=== PATIENT | female | born 1990 | race Caucasian/White ===

== ENCOUNTER 2017-01-27 07:47 | Emergency (ER) | payer OTHER ==
[~2017-01-27] VITALS: Ht 165.1 cm; Wt 63.5 kg
[~2017-01-27 07:47] MED LIST: CLIN1CAP6 PO; ZOFR4TAB3 SL
[2017-01-27 07:49] VITALS: BP 118/68; PULSE 106; RESP 20; TEMP 98.3; O2SAT 100
--- NOTE | 2017-01-27 08:23 | PD ---
HPI . BACK PAIN Chief Complaint: Pain: Acute or Chronic Time Seen by Provider: 07:54 Travel History International Travel<30 days: No Contact w/Intl Traveler<30days: No Traveled to known affect area: No History of Present Illness HPI 26-year-old female presents emergency department for evaluation of pain that originates between her shoulder blades and radiates through the anterior portion of her chest. Patient states the pain makes it difficult for her to take a deep breath. Patient states the pain started spontaneously yesterday when she was driving. The pain resolves completely with the use of over-the- counter NyQuil. The patient has taken NyQuil twice and both times the pain has resolved. The pain is not present during this time due to the patient taking NyQuil at 6 AM. The patient is a pack-a-day smoker. Denies any alcohol or drug use. The patient denies any major medical history and doesn't take any routine daily medication. The patient denies any family history of cardiac disease. The patient denies any nausea vomiting diarrhea. The patient denies any injuries, falls or traumas precipitating the pain. PFSH Past Medical History Anxiety: Yes Diminished Hearing: No Psychiatric: Yes Immunizations Current: Yes ?: Not LMP: 01/12/17 : 2 Para: 1 Ectopic : Yes Past Surgical History Abdominal Surgery: Yes (PARACENTISIS) Appendectomy: Yes (age 3) Section: Yes (12/05/2008) Gynecologic Surgery: Yes (L FALLOPIAN TUBE REMOVAL D/T ECTOPIC ) Social History Alcohol Use: Yes (SOCIALLY) Tobacco Use: Yes (1/2 ppd ) Substance Use: No Allergies-Medications (Allergen,Severity, Reaction): Coded Allergies: amoxicillin (Unverified Allergy, Severe, Anaphylaxis, 01/27/17) Reported Meds & Prescriptions Reported Meds & Active Scripts Active Flexeril (Cyclobenzaprine HCl) 5 Mg Tab 5 Mg PO TID Naproxen Sodium 220 Mg Tab 440 Mg PO BID PRN Review of Systems Except as stated in HPI: all other systems reviewed are Neg Physical Exam Narrative GENERAL: Well-nourished, well-developed 26-year-old female patient in no acute distress. Nontoxic appearing. SKIN: Focused skin assessment warm/dry. HEAD: Normocephalic. Atraumatic EYES: No scleral icterus. No injection or drainage. NECK: Supple, trachea midline. No JVD or lymphadenopathy. CARDIOVASCULAR: Regular rate and rhythm without murmurs, gallops, or rubs. RESPIRATORY: Breath sounds equal bilaterally. No accessory muscle use. GASTROINTESTINAL: Abdomen soft, non-tender, nondistended. MUSCULOSKELETAL: No deformity, ecchymosis, erythema, cyanosis, or edema. BACK: Nontender without obvious deformity. No CVA tenderness. Data Data Last Documented VS Vital Signs Date Time Temp Pulse Resp B/P (MAP) Pulse Ox O2 Delivery O2 Flow Rate FiO2 01/27/17 12:13 83 16 118/67 (84) 99 Room Air 01/27/17 07:49 98.3 Orders Orders Electrocardiogram (01/27/17 08:02) Chest, Single Ap (01/27/17 08:02) Cta Thor Abd Aorta W Iv C W3d (01/27/17 ) Ed Discharge Order (01/27/17 11:37) Naproxen (Naprosyn) (01/27/17 11:45) Cyclobenzaprine (Flexeril) (01/27/17 12:00) [facility] Medical Decision Making Medical Screen Exam Complete: Yes Emergency Medical Condition: Yes Differential Diagnosis Differential diagnoses include but not limited to CAD, pneumonia, PE, musculoskeletal strain, sprain, AAA, aortic aneurysm Narrative Course 26-year-old female presents to emergency department for evaluation of pain that starts between her shoulder blades and radiates through to the anterior portion of her chest. Patient denies any fever, chills, malaise. Pain is completely resolved at initial assessment. Patient states she took NyQuil at 6 AM and it took away the pain. Due to the nature of the pain chest x-ray and EKG was ordered. EKG showed normal sinus rhythm. Chest x-ray was negative. Patient case case discussed with my attending, Dr. Cramer. Due to the nature of the pain a CTA was ordered to evaluate the aorta. CTA was negative for any acute findings. When patient was going to be discharged she became upset crying that the pain had returned. Naproxen and Flexeril given. Patient's pain was relieved. Patient discharged home with naproxen and Flexeril prescription and instructions to return the emergency Department with any worsening condition but otherwise follow up with primary care. Diagnosis Primary Impression: Pain Referrals: Primary Care Physician Patient Instructions: General Instructions, Musculoskeletal Pain (ED) Additional Instructions: Please return to emergency department if your symptoms return or worsen. Follow up with your primary care provider. Take medications as prescribed. Med/Other Pt SpecificInfo: Prescription(s) given Scripts Cyclobenzaprine (Flexeril) 5 Mg Tab 5 MG PO TID for Muscle Spasm, #15 TAB 0 Refills Prov: Rupa Young 01/27/17 Naproxen Sodium (Naproxen Sodium) 220 Mg Tab 440 MG PO BID Y for Pain Management, #15 TAB 0 Refills Prov: Rupa Young 01/27/17 Disposition: 01 DISCHARGE HOME Condition: Stable Rupa Young Jan 27, 2017 08:23
--- NOTE | 2017-01-27 08:43 | RADRPT ---
EXAM DATE/TIME: 01/27/2017 08:21 [facility] COMPARISON: No previous studies available for comparison. INDICATIONS : Mid sternal chest pains radiating into left shoulder. MEDICAL HISTORY : None. SURGICAL HISTORY : None. ENCOUNTER: Initial ACUITY: 1 day PAIN SCORE: 7/10 LOCATION: Left chest FINDINGS: A single view of the chest demonstrates the lungs to be symmetrically aerated without evidence of mas s, infiltrate or effusion. The cardiomediastinal contours are unremarkable. Osseous structures are intact. CONCLUSION: No acute disease. Cristi Mann Jr., MD on January 27, 2017 at 8:40 Board Certified Radiologist. This report was verified electronically.
--- NOTE | 2017-01-27 11:21 | RADRPT ---
EXAM DATE/TIME: 01/27/2017 10:00 [facility] COMPARISON: No previous studies available for comparison. INDICATIONS : Upper back pain since yesterday. IV CONTRAST: 85 cc Omnipaque 350 (iohexol) IV RADIATION DOSE: 5.83 CTDIvol (mGy) MEDICAL HISTORY : None SURGICAL HISTORY : Appendectomy. section. ENCOUNTER: Initial ACUITY: 1 day PAIN SCALE: 7/10 LOCATION: chest/abdomen TECHNIQUE: Volumetric scanning was performed using a multi-row detector CT scanner. The data was post processed with a variety of visualization algorithms including full volume maximum intensity projection, multi -planar sliding thin slab reformation, curved planar reformation, and surface rendering techniques. Using automated exposure control and adjustment of the mA and/or kV according to patient size, radiat ion dose was kept as low as reasonably achievable to obtain optimal diagnostic quality images. DICOM format image data is available electronically for review and comparison. FINDINGS: LUNGS: There is no consolidation or pneumothorax. No concerning pulmonary nodule is visualized. No pleural fluid is present. MEDIASTINUM: No abnormally enlarged lymph nodes by CT criteria. No axillary or hilar abnormalities are identified. The pulmonary arteries are well-opacified and there is no evidence of pulmonary embolism. ABDOMEN: The liver and spleen are free of focal defects. The gallbladder and pancreas demonstrate no abnormali ty. The adrenal glands are normal. The kidneys demonstrate no evidence of solid renal mass or hydrone phrosis. No free fluid or abdominal masses are identified. No para-aortic adenopathy is seen. PELVIS: 3.3 cm left adnexal cyst. No free pelvic fluid. No pelvic adenopathy. THORACIC AORTA: The thoracic aortic root is normal with normal branching of the great vessels. There is no evidence of aneurysm or dissection. ABDOMINAL AORTA: The aorta is normal in caliber without aneurysm or dissection. The renal arteries are patent bilater ally. The proximal celiac and superior mesenteric arteries are patent and normal in diameter. PELVIC VESSELS: The internal iliac and external iliac vessels are patent without aneurysm or stenosis. CONCLUSION: Left ovarian cyst. No other acute CT findings. Specifically, no acute vascular abnormality. Dc Barrera MD on January 27, 2017 at 11:15 Board Certified Radiologist. This report was verified electronically.
[2017-01-27] MEDS ORDERED: MEDI220T PO (11:35)
[2017-01-27] MEDS ORDERED: NAPROXEN 500 MG TAB PO ONE (11:45)
[2017-01-27] MEDS ORDERED: CYCLOBENZAPRINE HCL 10 MG TAB PO ONE (12:00)
[2017-01-27 12:13] VITALS: BP 118/67; PULSE 83; RESP 16; O2SAT 99
[2017-01-27] MEDS ORDERED: CYCL5TAB PO (12:54)
[2017-01-27] MEDS ORDERED: IOHEXOL 350 MG/ML 10 ML VIAL (for RAD DIAG) IVCONTRAST ONE (13:10)
--- NOTE | 2017-01-27 13:29 | EKG ---
Date Performed: 01/27/2017 Time Performed: 08:15:15 PTAGE: 26 years EKG: Sinus rhythm INCOMPLETE RIGHT BUNDLE BRANCH BLOCK BORDERLINE ECG Compared to prior electrocardiogram, rate has in creased . PREVIOUS TRACING : 10/27/2015 02.45 DOCTOR: Serafin Wolff Interpretating Date/Time 01/27/2017 13:28:47
== END 2017-01-27 12:57 | disposition home or self-care (01) ==
LOC: NEPD 07:47
DX: M25.519 Pain in unspecified shoulder (principal); R07.9 Chest pain, unspecified; F41.9 Anxiety disorder, unspecified; F17.200 Nicotine dependence, unspecified, uncomplicated; Z79.899 Other long term (current) drug therapy; Z88.0 Allergy status to penicillin
CPT/HCPCS: 71010; 71275; 74174; 93005; 99285; Q9967